=== PATIENT | male | born 1960 | race Caucasian/White ===

== ENCOUNTER 2017-02-24 04:02 | Emergency (ER) | payer BC ==
[~2017-02-24] VITALS: Ht 180.3 cm; Wt 142.8 kg
[~2017-02-24 04:02] MED LIST: ALEVE220 MG PO; BRILINTA90 MG PO; CRESTOR40 MG PO; DIABETA5 MG PO; FLONASE16 G1 BOTH NARES; GLUCOPHAGE1000 MG PO; LEVEMIR FL100 UNIT/1 SC; LO-DOSE ASPIRIN81 M1 PO; LOTENSIN40 MG PO; MOTRIN800 MG PO; NORVASC10 MG PO; PRILOSEC20 MG PO; PROTONIX40 MG PO; TOPROL XL200 MG PO
[2017-02-24 04:35] LABS: HEMATOCRIT 46.2 % (38.0-50.0); MCH 25.8 PG (29.0-34.0); MCHC 31.8 G/DL (30.0-36.0); MCV 81.2 FL (86-99); MEAN PLAT.VOLUME 9.8 uM^3 (9.0-12.4); PLATELET COUNT 258 K/uL (156-360); RBC DIS.WIDTH-CV 13.7 % (11.8-14.6); RBC DIS.WIDTH-SD 40.2 % (39-53); RED BLOOD COUNT 5.69 M/uL (4.00-5.50); WHITE BLOOD COUNT 8.3 K/uL (4.1-10.2)
[2017-02-24 04:43] LABS: CHLORIDE 102 mEq/L (99-109); POTASSIUM 4.7 mEq/L (3.7-5.4); SODIUM 136 mEq/L (136-147)
[2017-02-24 04:45] LABS: GLUCOSE 293 mg/dL (70-99)
[2017-02-24 04:46] LABS: ANION GAP 12 MEQ/L (2-14)
[2017-02-24 04:49] LABS: GFR ESTIMATE (CALCULATED) > 59 mL/min/
[2017-02-24 04:50] LABS: UREA NITROGEN (BUN) 20 mg/dL (9-23)
[2017-02-24 05:14] VITALS: BP 134/82
== END 2017-02-24 05:16 | disposition home or self-care (01) ==
LOC: EME 04:02
PROVIDERS: Emergency Medicine
PROC: 2Y41X5Z Packing of Nasal Region using Packing Material (ICD-10-PCS; principal; 2017-02-24)
DX: R04.0 Epistaxis (principal); I10 Essential (primary) hypertension; E78.5 Hyperlipidemia, unspecified; E11.9 Type 2 diabetes mellitus without complications; Z79.84 Long term (current) use of oral hypoglycemic drugs
CPT/HCPCS: 80048; 85027; 99281; 99283

== ENCOUNTER 2017-10-13 05:01 | Emergency (ER) | payer OTHER ==
[~2017-10-13] VITALS: Ht 180.3 cm; Wt 144.5 kg
[2017-10-13] MEDS ORDERED: TESSALON PERLE100 MG PO (06:11)
[2017-10-13] MEDS ORDERED: PERCOCET 5/31 TABLET PO (06:11)
[2017-10-13] MEDS ORDERED: PROAIR HFA8.5 GM IH (06:11)
[2017-10-13 06:45] VITALS: BP 142/85
== END 2017-10-13 06:49 | disposition home or self-care (01) ==
LOC: EME 05:01
DX: S23.41XA Sprain of ribs, initial encounter (principal); J20.9 Acute bronchitis, unspecified; J06.9 Acute upper respiratory infection, unspecified; X50.9XXA Other and unspecified overexertion or strenuous movements or postures, initial encounter; I10 Essential (primary) hypertension; E78.5 Hyperlipidemia, unspecified; E11.9 Type 2 diabetes mellitus without complications; I25.2 Old myocardial infarction; Z79.4 Long term (current) use of insulin; Z79.82 Long term (current) use of aspirin
CPT/HCPCS: 71101; 93005; 94640; 99281; 99284